=== PATIENT | female | born 1965 | race Two or more races ===

== ENCOUNTER 2021-04-05 13:45 | Outpatient (CLI) | payer OTHER ==
[~2021-04-05 13:45] MED LIST: NAPR500T14 PO
== END 2021-04-05 14:00 | disposition home or self-care (01) ==
LOC: NUCLEAR 13:45
PROVIDERS: ATTEND Internal Medicine Cardiovascular Disease
DX: M81.0 Age-related osteoporosis without current pathological fracture (principal); E55.9 Vitamin D deficiency, unspecified

== ENCOUNTER 2021-05-11 09:43 | Outpatient (CLI) | payer OTHER | END 2021-05-11 10:06 | disposition home or self-care (01) | LOC: MAMO-SONO 09:43 | PROVIDERS: ATTEND Internal Medicine Cardiovascular Disease | DX: D64.89 Other specified anemias (principal); Z12.31 Encounter for screening mammogram for malignant neoplasm of breast ==

== ENCOUNTER 2022-07-12 14:30 | Emergency (ER) | payer OTHER ==
[~2022-07-12] VITALS: Ht 154.9 cm; Wt 71.2 kg
[2022-07-12] MEDS ORDERED: LEVOTHYROXINE88 MC1 PO (14:41)
[2022-07-12] MEDS ORDERED: ATACAND16 MG PO (14:41)
[2022-07-12] MEDS ORDERED: PERCOGESIC EXT1 EACH PO (14:42)
== END 2022-07-12 18:02 | disposition home or self-care (01) ==
LOC: ER 14:30
DX: M79.642 Pain in left hand (principal); I10 Essential (primary) hypertension; E03.9 Hypothyroidism, unspecified; M19.042 Primary osteoarthritis, left hand

== ENCOUNTER 2023-07-03 09:19 | Outpatient (CLI) | payer OTHER ==
[~2023-07-03 09:19] MED LIST changes: +ATACAND16 MG PO; +DICLOFENAC POTA50 MG PO; +LEVOTHYROXINE88 MC1 PO; +NORFLEX100MG PO; +PERCOGESIC EXT1 EACH PO
== END 2023-07-03 09:30 | disposition home or self-care (01) ==
LOC: MAMO-SONO 09:19
PROVIDERS: ATTEND Specialist
DX: R92.0 Mammographic microcalcification found on diagnostic imaging of breast (principal); Z12.31 Encounter for screening mammogram for malignant neoplasm of breast

== ENCOUNTER 2024-06-04 12:33 | Outpatient (CLI) | payer OTHER | END 2024-06-04 12:35 | disposition home or self-care (01) | LOC: NUCLEAR 12:33 | PROVIDERS: ATTEND Internal Medicine Cardiovascular Disease | DX: M81.0 Age-related osteoporosis without current pathological fracture (principal); E55.9 Vitamin D deficiency, unspecified ==

== ENCOUNTER 2024-07-09 10:08 | Outpatient (CLI) | payer OTHER | END 2024-07-09 10:17 | disposition home or self-care (01) | LOC: MAMO-SONO 10:08 | PROVIDERS: ATTEND Specialist | DX: N60.11 Diffuse cystic mastopathy of right breast (principal); R92.0 Mammographic microcalcification found on diagnostic imaging of breast ==

== ENCOUNTER 2024-08-01 14:41 | Outpatient (CLI) | payer OTHER | END 2024-08-01 14:52 | disposition home or self-care (01) | LOC: MRI 14:41 | DX: S63.501A Unspecified sprain of right wrist, initial encounter (principal); S63.8X1A Sprain of other part of right wrist and hand, initial encounter | CPT/HCPCS: 73218 ==